=== PATIENT | female | born 1970 | race African-American/Black ===

== ENCOUNTER 2018-06-29 13:51 | Observation (INO) ==
[2018-06-29] MEDS ORDERED: Sodium Chlor 0.9% Inj 500 ML IV.SIG ONE (14:46)
[2018-06-29] MEDS ORDERED: Metoprolol Inj 5 MG/5 ML Vial IV.PUSH ONE (15:00)
--- NOTE | 2018-06-29 15:24 | XR ---
EXAM DATE: 06/29/2018 3:21 PM EDT AGE/SEX: 47 years / Female INDICATIONS: Chest pain, dizzy when she eats. CLINICAL DATA: This is the patient's initial encounter. Patient reports that signs and symptoms have been present for 2 days and indicates a pain score of 9/10. MEDICAL/SURGICAL HISTORY: None. None. COMPARISON: No prior exams available for comparison. FINDINGS: Single AP view chest. Mildly enlarged cardiac silhouette. Bilateral hazy lung opacity with mid to low er lung zone predominance. No evidence of pleural effusion or pneumothorax. CONCLUSION: Enlarged cardiac silhouette and hazy bilateral pulmonary opacity indicating possible pulmonary edema. Electronically signed by: Sundeep Slade MD 06/29/2018 3:23 PM EDT
[2018-06-29 15:31] LABS: Baso % (Auto) 0.2 % (0.0-2.0); Eos % (Auto) 0.1 % (0.0-4.0); Hematocrit 30.4 % (35.0-46.0); Hemoglobin 9.5 gm/dL (11.6-15.3); Lymph # (Auto) 0.6 th/mm3 (1.0-4.8); Mean Corpuscular HGB Conc 31.2 % (32.0-36.0); Mean Corpuscular Hemoglobin 27.3 pg (27.0-34.0); Mean Corpuscular Volume 87.7 fL (80.0-100.0); Mean Platelet Volume 8.3 fL (7.0-11.0); Mono # (Auto) 0.9 th/mm3 (0.0-0.9); Mono % (Auto) 6.6 % (0.0-8.0); Neut # (Auto) 12.6 th/mm3 (1.8-7.7); Neut % (Auto) 89.1 % (16.0-70.0); Platelet Count 259 th/mm3 (150-450); Red Blood Count 3.47 mil/mm3 (4.00-5.30); Red Cell Distribution Width 17.9 % (11.6-17.2); White Blood Count 14.1 th/mm3 (4.0-11.0)
--- NOTE | 2018-06-29 15:36 | ED ---
HPI General Chief Complaint: Chest Pain Stated Complaint: medical Time Seen by Provider: 06/29/18 14:46 Source: patient Mode of arrival: ambulatory Limitations: no limitations History of Present Illness HPI narrative: Patient is a 47-year-old female presenting to the emergency department for evaluation of chest pain. Patient states started just prior to arrival to the emergency department. She states she was walking to her appointment when the chest pain started. Patient states the pain is sharp and midsternal with radiation to her right arm. She states she felt short of breath and diaphoretic when the pain occurred. Patient states it was hot outside and she did a lot of walking this morning. Patient denies any history of a heart attack. She denies any illicit drug use. She does report a history of hypertension, she was states that she was on atenolol when she lived in [place] but she has been in [place] for approximately 1 month and is out of her medications. Patient reported her pain was a 6 out of 10. The pain occurred with exertion. It does not alleviate with rest. Complete Quality Measures for STEMI Alert Patients Related Data Home Medications Medication Instructions Recorded Confirmed atenolol 25 mg PO DAILY 06/29/18 06/29/18 Allergies Allergy/AdvReac Type Severity Reaction Status Date / Time No Known Allergies Allergy Verified 06/29/18 17:55 Review of Systems Except as stated in HPI: all other systems reviewed are negative [facility] Medical History Medical History Hypertension (Acute) Social History Social History Substance History: No History of Abuse Second Hand Smoke Exposure: No Smoking Status: Never smoker How Often Do You Have a Drink Containing Alcohol: Never Recent Travel in [facility] within the Last 8 Weeks: No Recent Out of Country Travel within the Last 8 Weeks: No Immunization History Tetanus Immunization: Unsure Hx Influenza Vaccine This Season: No Exam Narrative Exam Narrative: GENERAL: Well-developed, well-nourished, alert -[place] female. Presenting in no acute distress. SKIN: Focused skin assessment warm/dry. HEAD: Atraumatic. Normocephalic. EYES: Pupils equal and round. No scleral icterus. No injection or drainage. ENT: No nasal bleeding or discharge. Mucous membranes pink and moist. NECK: Trachea midline. No JVD. CARDIOVASCULAR: Tachycardic. No murmur appreciated. RESPIRATORY: No accessory muscle use. Clear to auscultation. Breath sounds equal bilaterally. GASTROINTESTINAL: Abdomen soft, non-tender, nondistended. Hepatic and splenic margins not palpable. MUSCULOSKELETAL: No obvious deformities. No clubbing. No cyanosis. No edema. NEUROLOGICAL: Awake and alert. No obvious cranial nerve deficits. Motor grossly within normal limits. Normal speech. PSYCHIATRIC: Appropriate mood and affect; insight and judgment normal. Course Initial Documented Vital Signs Temperature 98.4 F 06/29/18 14:18 Pulse Rate 109 H 06/29/18 14:18 Respiratory Rate 16 06/29/18 14:18 Blood Pressure 175/91 H 06/29/18 14:18 Pulse Oximetry 100 06/29/18 14:18 Last Documented Vital Signs Temperature 97.8 F 06/29/18 17:34 Pulse Rate 81 06/29/18 17:34 Respiratory Rate 17 06/29/18 17:34 Blood Pressure 149/90 H 06/29/18 17:34 Pulse Oximetry 98 06/29/18 17:34 Medical Decision Making [facility] Narrative Medical decision making narrative: Patient is a 47-year-old female presented to the emergency department for evaluation of an abrupt onset of chest pain with radiation to her right arm. Patient is hypertensive on arrival is otherwise stable. Labs and imaging ordered and pending. Telemetry monitoring continuous pulse oximetry placed. IV access is established. Patient was given metoprolol IV 1 dose as well as 324 chewable aspirin. Chest x-ray which is read by the radiologist shows enlarged cardiac silhouette with possible pulmonary edema. BNP is 134, labs are otherwise unremarkable. Patient was given Lasix IV 1 dose. Patient will be admitted to the chest pain center for further evaluation and management. Patient is agreeable to stay. Discussed with my attending physician who reviewed the initial EKG. Differential Diagnosis Differential Diagnosis: ACS versus [place] versus costochondritis versus other Lab Data Result diagrams: 06/29/18 15:00 06/29/18 15:00 Lab Results 06/29/18 06/29/18 06/29/18 Range/Units 15:00 15:00 15:00 WBC 14.1 H (4.0-11.0) th/mm3 RBC 3.47 L (4.00-5.30) mil/mm3 Hgb 9.5 L (11.6-15.3) gm/dL Hct 30.4 L (35.0-46.0) % MCV 87.7 (80.0-100.0) fL MCH 27.3 (27.0-34.0) pg MCHC 31.2 L (32.0-36.0) % RDW 17.9 H (11.6-17.2) % Plt Count 259 (150-450) th/mm3 MPV 8.3 (7.0-11.0) fL Neut % (Auto) 89.1 H (16.0-70.0) % Lymph % (Auto) 4.0 L (9.0-44.0) % [place] % (Auto) 6.6 (0.0-8.0) % Eos % (Auto) 0.1 (0.0-4.0) % Baso % (Auto) 0.2 (0.0-2.0) % Neut # (Auto) 12.6 H (1.8-7.7) th/mm3 Lymph # (Auto) 0.6 L (1.0-4.8) th/mm3 [place] # (Auto) 0.9 (0.0-0.9) th/mm3 Eos # (Auto) 0.0 (0.0-0.4) th/mm3 Baso # (Auto) 0.0 (0.0-0.2) th/mm3 WBC Differential . Differential Comment Auto diff final PT 11.1 (9.8-11.6) sec INR 1.1 Ratio APTT 23.5 L (24.3-30.1) sec Sodium (136-145) meq/L Potassium (3.5-5.1) meq/L Chloride (98-107) meq/L Carbon Dioxide (21.0-32.0) meq/L Anion Gap (5-15) meq/L BUN (7-18) mg/dL Creatinine (0.50-1.00) mg/dL Estimated GFR (>89) mL/min POC Glucose (68-110) mg/dl Random Glucose (74-106) mg/dL Calcium (8.5-10.1) mg/dL Magnesium (1.5-2.5) mg/dL Total Bilirubin (0.2-1.0) mg/dL AST (15-37) U/L ALT (10-53) U/L Alkaline Phosphatase (45-117) U/L Total Creatine Kinase (26-192) U/L CK-MB (CK-2) (0.5-3.6) ng/mL CK-MB (CK-2) % (0.0-4.0) % Troponin I 0.03 (0.02-0.05) ng/mL B-Natriuretic Peptide (0-100) pg/mL Total Protein (6.4-8.2) g/dL Albumin (3.4-5.0) g/dL Lipase 102 (73-393) U/L 06/29/18 06/29/18 06/29/18 Range/Units 15:00 15:00 15:14 WBC (4.0-11.0) th/mm3 RBC (4.00-5.30) mil/mm3 Hgb (11.6-15.3) gm/dL Hct (35.0-46.0) % MCV (80.0-100.0) fL MCH (27.0-34.0) pg MCHC (32.0-36.0) % RDW (11.6-17.2) % Plt Count (150-450) th/mm3 MPV (7.0-11.0) fL Neut % (Auto) (16.0-70.0) % Lymph % (Auto) (9.0-44.0) % [place] % (Auto) (0.0-8.0) % Eos % (Auto) (0.0-4.0) % Baso % (Auto) (0.0-2.0) % Neut # (Auto) (1.8-7.7) th/mm3 Lymph # (Auto) (1.0-4.8) th/mm3 [place] # (Auto) (0.0-0.9) th/mm3 Eos # (Auto) (0.0-0.4) th/mm3 Baso # (Auto) (0.0-0.2) th/mm3 WBC Differential Differential Comment PT (9.8-11.6) sec INR Ratio APTT (24.3-30.1) sec Sodium 142 (136-145) meq/L Potassium 5.0 (3.5-5.1) meq/L Chloride 110 H (98-107) meq/L Carbon Dioxide 25.9 (21.0-32.0) meq/L Anion Gap 6 (5-15) meq/L BUN 17 (7-18) mg/dL Creatinine 1.14 H (0.50-1.00) mg/dL Estimated GFR 51 L (>89) mL/min POC Glucose 74 (68-110) mg/dl Random Glucose 80 (74-106) mg/dL Calcium 8.6 (8.5-10.1) mg/dL Magnesium 1.9 (1.5-2.5) mg/dL Total Bilirubin 0.4 (0.2-1.0) mg/dL AST 211 H (15-37) U/L ALT 134 H (10-53) U/L Alkaline Phosphatase 80 (45-117) U/L Total Creatine Kinase 199 H (26-192) U/L CK-MB (CK-2) Less than 1.0 (0.5-3.6) ng/mL CK-MB (CK-2) % 0.5 (0.0-4.0) % Troponin I (0.02-0.05) ng/mL B-Natriuretic Peptide 134 H (0-100) pg/mL Total Protein 7.6 (6.4-8.2) g/dL Albumin 3.2 L (3.4-5.0) g/dL Lipase (73-393) U/L Imaging Data Attestation: I personally reviewed and interpreted this imaging study as follows : Radiologist's impression: Chest X-Ray 06/29/18 14:46 CONCLUSION: Enlarged cardiac silhouette and hazy bilateral pulmonary opacity indicating possible pulmonary edema. Discharge Plan Discharge Disposition Patient Disposition: 30 Still Patient Discharge Condition Condition: Stable Discharge Details Diagnosis: Atypical chest pain Physicians Team ED Provider: Mary Payton ED Midlevel Provider: Michaelle Arora Primary Care Provider: Primary Care Cielo Odom Attending Provider: Kristopher Guan Discharge Interventions Interventions: Vital Signs Last Done: 06/29/18 15:00 Status ED Status: Admitted Observation Patient
[2018-06-29 15:47] LABS: Activated Partial Thrombo Time 23.5 sec (24.3-30.1); INR 1.1 Ratio; Prothrombin Time 11.1 sec (9.8-11.6)
[2018-06-29 15:51] LABS: Troponin I 0.03 ng/mL (0.02-0.05)
[2018-06-29 15:53] LABS: Alanine Aminotransferase 134 U/L (10-53); Albumin 3.2 g/dL (3.4-5.0); Alkaline Phosphatase 80 U/L (45-117); Anion Gap 6 meq/L (5-15); Aspartate Aminotransferase 211 U/L (15-37); Blood Urea Nitrogen 17 mg/dL (7-18); Calcium 8.6 mg/dL (8.5-10.1); Carbon Dioxide 25.9 meq/L (21.0-32.0); Chloride 110 meq/L (98-107); Creatine Kinase 199 U/L (26-192); Glomerular Filtration Rate 51 mL/min (>89); Glucose,Random 80 mg/dL (74-106); Magnesium 1.9 mg/dL (1.5-2.5); Sodium 142 meq/L (136-145); Total Protein 7.6 g/dL (6.4-8.2)
[2018-06-29 16:12] LABS: CKMB Percent 0.5 % (0.0-4.0)
[2018-06-29] MEDS ORDERED: Acetaminophen 500 MG Tablet PO PRN (17:34)
[2018-06-29 18:45] LABS: Troponin I 0.03 ng/mL (0.02-0.05)
[2018-06-29 21:54] LABS: Troponin I 0.03 ng/mL (0.02-0.05)
--- NOTE | 2018-06-30 08:16 | P.HPCA ---
History of Present Illness Primary Care Physician: No Primary Care Physician Chief Complaint: Chest pain History of Present Illness: 47-year-old female with history of hypertension currently not on medications presents emergency room for further evaluation of nonexertional chest pain. Onset 2 PM. Location substernal. Characterized as a quick sharp pain. Severity 9/10. Radiation to right arm. Duration constant. No associated nausea , vomiting, dyspnea, or diaphoresis. No precipitating or relieving factors. Denies cardiac disease. No recent illness or injury. Denies past cardiac testing. Family history noncontributory for early onset cardiovascular disease. States she is homeless, currently looking for housing. Recently relocated from [place]. - Diagnosis (1) Chest wall pain (2) H/O: hypertension (3) H/O: iron deficiency anemia Review of Systems All other systems reviewed negative except as stated in HPI PMFSH - History History Provided By: Patient - Medical History Medical History: Medical History (Last Reviewed 06/30/18 @ 16:03 by MARY Khan) Hypertension - Tobacco History Second Hand Smoke Exposure: No Tobacco Use In Past 30 Days: No Smoking Status: Former smoker - Alcohol History How Often Do You Have a Drink Containing Alcohol: Never - Substance Use History Substance History: No History of Abuse - Travel History Recent Travel in the [place] Within the Last 8 Weeks: No Recent Travel Out of the Country Within the Last 8 Weeks: No - Immunization History Tetanus Immunization: Unsure Hx Influenza Vaccine This Season: No Medications and Allergies Active Medications: Active Medications Acetaminophen (Tylenol) 500 mg PO Q4H PRN PRN Reason: HEADACHE Last Admin: 06/29/18 19:44 Dose: 500 mg Aspirin (Aspirin) 325 mg PO DAILY [facility] Lisinopril (Prinivil) 10 mg PO DAILY [facility] Ondansetron HCl (Zofran Inj) 4 mg IV.PUSH Q6H PRN PRN Reason: NAUSEA Sodium Chloride (Ns Flush) 2 ml IV.FLUSH UNSCH PRN PRN Reason: FLUSH AFTER USING IV ACCESS Last Admin: 06/29/18 17:47 Dose: 2 ml Sodium Chloride (Ns Flush) 2 ml IV.FLUSH BID [facility] Last Admin: 06/30/18 03:05 Dose: 2 ml Sodium Chloride (Ns Flush) 2 ml IV.FLUSH PRN PRN PRN Reason: FLUSH AFTER USING IV ACCESS Allergies Allergy/AdvReac Type Severity Reaction Status Date / Time No Known Allergies Allergy Verified 06/29/18 17:55 Exam Vital signs: Vital Signs 06/29/18 14:18 06/29/18 14:53 06/29/18 15:00 Temperature 98.4 F 97.8 F Pulse Rate 109 H 98 H 87 Respiratory Rate 16 20 17 Blood Pressure 175/91 H 175/90 H 144/85 H Pulse Oximetry 100 95 100 06/29/18 15:10 06/29/18 17:34 06/29/18 18:32 Temperature 97.8 F 97.8 F Pulse Rate 81 78 Respiratory Rate 17 18 Blood Pressure 149/90 H 143/81 H Pulse Oximetry 99 98 06/29/18 19:36 06/29/18 21:00 06/29/18 23:29 Temperature 98.0 F 98.2 F Pulse Rate 88 87 83 Respiratory Rate 16 16 Blood Pressure 155/78 H 127/78 Pulse Oximetry 96 99 06/30/18 03:41 06/30/18 04:00 06/30/18 07:42 Temperature 98.4 F Pulse Rate 91 H 90 86 Respiratory Rate 16 Blood Pressure 132/82 Pulse Oximetry 96 Intake & Output 06/29/18 06/30/18 06/30/18 18:59 06:59 18:59 Intake Total 500 / 500 Balance 500 / 500 Weight 99.705 kg Intake: IV 500 / 500 NS Inj 500 ML @ Wide Open IV. 500 / 500 SIG ONCE ONE Rx#:[id number] Other: Date of Last Bowel Movement 06/29/18 Narrative: GENERAL: Alert WN, WD, NAD, pleasant, -[place] obese female mental delay HEAD: NC, AT NECK: Supple, no masses, trachea midline CV: RRR, without murmur, rub, gallop, no JVD. No carotid bruits. Chest wall pain reproducible with palpation. RESP: Clear lungs throughout bilateral, no crackles, wheeze, rhonchi, symmetrical chest rise, nonlabored, able to speak in full sentences ABD: Soft, NT, ND, no masses, positive bowel tones EXT: Pulses +2x4, no dependent edema MS: Normal tone x4 extremities, nontender, no obvious deformities, full range of motion NEURO: CN II through CN XII grossly intact, motor strength 5/5 PSYCH: A+O x3, pleasant affect, appropriate speech and mood. Questionable insight and judgment suspect either mental delay and/or psychiatric history. SKIN: Normal turgor, normal texture, no lesions, no rashes Results 06/29/18 15:00 06/29/18 15:00 Cardiac Enzymes 06/29/18 06/29/18 06/29/18 Range/Units 15:00 15:00 15:00 AST 211 H (15-37) U/L CK-MB (CK-2) Less than 1.0 (0.5-3.6) ng/mL Troponin I 0.03 (0.02-0.05) ng/mL B-Natriuretic Peptide 134 H (0-100) pg/mL 06/29/18 06/29/18 Range/Units 18:00 21:25 AST (15-37) U/L CK-MB (CK-2) (0.5-3.6) ng/mL Troponin I 0.03 0.03 (0.02-0.05) ng/mL B-Natriuretic Peptide (0-100) pg/mL Coagulation 06/29/18 06/29/18 Range/Units 15:00 15:00 PT 11.1 (9.8-11.6) sec APTT 23.5 L (24.3-30.1) sec B-Natriuretic Peptide 134 H (0-100) pg/mL CBC 06/29/18 Range/Units 15:00 WBC 14.1 H (4.0-11.0) th/mm3 RBC 3.47 L (4.00-5.30) mil/mm3 Hgb 9.5 L (11.6-15.3) gm/dL Hct 30.4 L (35.0-46.0) % Plt Count 259 (150-450) th/mm3 Neut # (Auto) 12.6 H (1.8-7.7) th/mm3 Lymph # (Auto) 0.6 L (1.0-4.8) th/mm3 [place] # (Auto) 0.9 (0.0-0.9) th/mm3 Eos # (Auto) 0.0 (0.0-0.4) th/mm3 Baso # (Auto) 0.0 (0.0-0.2) th/mm3 Comprehensive Metabolic Panel 06/29/18 Range/Units 15:00 Sodium 142 (136-145) meq/L Potassium 5.0 (3.5-5.1) meq/L Chloride 110 H (98-107) meq/L Carbon Dioxide 25.9 (21.0-32.0) meq/L BUN 17 (7-18) mg/dL Creatinine 1.14 H (0.50-1.00) mg/dL Calcium 8.6 (8.5-10.1) mg/dL AST 211 H (15-37) U/L ALT 134 H (10-53) U/L Alkaline Phosphatase 80 (45-117) U/L Total Protein 7.6 (6.4-8.2) g/dL Albumin 3.2 L (3.4-5.0) g/dL Intake and Output 06/29/18 06/30/18 06/30/18 22:59 06:59 14:59 Intake Total 500 / 500 Balance 500 / 500 Intake: IV 500 / 500 NS Inj 500 ML @ Wide Open IV. 500 / 500 SIG ONCE ONE Rx#:[id number] Other: Date of Last Bowel Movement 06/29/18 EKG interpretations - EKG EKG results cardiology: sinus rhythm, normal axis, normal QRS, normal ST/T Caprini VTE Risk Assessment Caprini VTE Risk Assessment: No/Low Risk (score <= 1) Caprini Risk Assessment Model: Point Value = 1 Point Value = 2 Point Value = 3 Point Value = 5 Age 41-60 Minor surgery BMI > 25 kg/m2 Swollen legs Varicose veins or History of unexplained or recurrent spontaneous Oral contraceptives or hormone replacement Sepsis (< 1 month) Serious lung disease, including pneumonia (< 1 month) Abnormal pulmonary function Acute myocardial infarction Congestive heart failure (< 1 month) History of inflammatory bowel disease Medical patient at bed rest Age 61-74 Arthroscopic surgery Major open surgery (> 45 min) Laparoscopic surgery (> 45 min) Malignancy Confined to bed (> 72 hours) Immobilizing plaster cast Central venous access Age >= 75 History of VTE Family history of VTE Factor V Leiden Prothrombin [id number] Lupus anticoagulant Anticardiolipin antibodies Elevated serum homocysteine Heparin-induced thrombocytopenia Other congenital or acquired thrombophilia Stroke (< 1 month) Elective arthroplasty Hip, pelvis, or leg fracture Acute spinal cord injury (< 1 month) Prophylaxis Regimen: Total Risk Factor Score Risk Level Prophylaxis Regimen 0-1 Low Early ambulation 2 Moderate Order ONE of the following: *Sequential Compression Device (SCD) *Heparin 5000 units SQ BID 3-4 Higher Order ONE of the following medications: *Heparin 5000 units SQ TID *Enoxaparin/Lovenox 40 mg SQ daily (WT < 150 kg, CrCl > 30 mL/min) *Enoxaparin/Lovenox 30 mg SQ daily (WT < 150 kg, CrCl > 10-29 mL/min) *Enoxaparin/Lovenox 30 mg SQ BID (WT < 150 kg, CrCl > 30 mL/min) AND/OR *Sequential Compression Device (SCD) 5 or more Highest Order ONE of the following medications: *Heparin 5000 units SQ TID (Preferred with Epidurals) *Enoxaparin/Lovenox 40 mg SQ daily (WT < 150 kg, CrCl > 30 mL/min) *Enoxaparin/Lovenox 30 mg SQ daily (WT < 150 kg, CrCl > 10-29 mL/min) *Enoxaparin/Lovenox 30 mg SQ BID (WT < 150 kg, CrCl > 30 mL/min) AND *Sequential Compression Device (SCD) Assessment and Plan - Assessment (1) Chest wall pain Code(s): R07.89 - Other chest pain Status: Acute Plan: Admitted chest pain center. ACS ruled out 3 sets of EKGs and cardiac enzymes. Seen and evaluated by Dr. Kristopher Guan. Proceed with exercise cardiac testing this morning. If unremarkable, plans will be to discharge home with follow-up with PCP. Discomfort highly suggestive of musculoskeletal chest wall pain, easily reproduced. Will be encouraged to use [id number] Aleve or Motrin upon discharge and use heat to affected area. Information regarding [facility] provided, if decides to remain in [facility]. (2) H/O: hypertension Code(s): Z86.79 - Personal history of other diseases of the circulatory system Status: Chronic Plan: Requesting refill of atenolol 25 mg, refill we be provided up discharge. Discussed importance of tight blood pressure control. Encouraged weight loss and follow low sodium diet. Reinforcement will likely be required. [facility] information provided. (3) H/O: iron deficiency anemia Code(s): Z86.2 - Personal history of diseases of the blood and blood-forming organs and certain disorders involving the immune mechanism Status: Chronic Plan: Reports history of iron deficiency anemia. Follow up with primary care provider as previously instructed. H&P: Quality - VTE Deep Vein Thrombosis/Pulmonary Embolism Present on Admission: No
[2018-06-30] MEDS ORDERED: Lisinopril 10 MG Tablet PO SCH (09:00)
[2018-06-30] MEDS ORDERED: Aspirin 325 MG Tablet PO SCH (09:00)
--- NOTE | 2018-06-30 11:55 | TR ---
Date Performed: 06/30/2018 Time Performed: 11:19:35 DOCTOR: Kristopher Guan DRUG LIST: CLINICAL HISTORY: REASON FOR TEST: Chest pain REASON FOR ENDING: OBSERVATION: CONCLUSION: Jackson protocol completed. Stopped sec to leg fatigue, exceeding target heart rate, a nd concern over walking safely in next stage. Maximum WE=677 Target HR Achieved=88.0% Maximum SE=919/ 98 Total Exercise Time=3:04. No reprod chest discomfort. No ectopy. Upsloping st segments. Poor exerc ise tolerance. Hypertensive bp response. Recovery quick, rare PVC, otherwise unremarkable. COMMENTS: Conclusion: Normal treadmill exercise. No evidence of ischemia.
--- NOTE | 2018-06-30 12:01 | ECG ---
Date Performed: 06/29/2018 Time Performed: 19:48:08 PTAGE: 47 years EKG: Sinus rhythm Poor R wave progression ABNORMAL ECG PREVIOUS TRACING : 06/29/2018 15.34 Since previous tracing, no significant change noted DOCTOR: Kristopher Guan Interpretating Date/Time 06/30/2018 11:59:03
--- NOTE | 2018-06-30 12:03 | ECG ---
Date Performed: 06/29/2018 Time Performed: 18:18:58 PTAGE: 47 years EKG: Sinus rhythm Poor R wave progression ABNORMAL ECG PREVIOUS TRACING : 06/29/2018 15.34 Since previous tracing, no significant change noted DOCTOR: Kristopher Guan Interpretating Date/Time 06/30/2018 12:01:53
--- NOTE | 2018-06-30 12:08 | ECG ---
Date Performed: 06/29/2018 Time Performed: 15:34:06 PTAGE: 47 years EKG: Sinus rhythm Poor R wave progression ABNORMAL ECG NO PREVIOUS TRACING DOCTOR: Kristopher Guan Interpretating Date/Time 07/02/2018 07:25:06
[2018-07-03 18:11] VITALS: BP 144/85; PULSE 77; RESP 18; TEMP 97.7; O2SAT 99
== END 2018-06-30 14:48 | disposition home or self-care (01) ==
LOC: NEPGCP 13:51 → NEDA 13:51 → NEPE 13:51 → NEDA 18:30 → NEPGCP 18:36 → UNDODISOB 06-30 08:21